=== PATIENT | female | born 1985 | race Caucasian/White ===

== ENCOUNTER 2017-11-23 19:57 | Emergency (ER) | payer MEDICARE ==
[~2017-11-23] VITALS: Ht 172.7 cm; Wt 65.8 kg
--- NOTE | 2017-11-23 20:21 | NUR ---
PT AMBULATORY TO ER BED 16. PT [facility] REPRESENTATIVE [facility], [facility] REPRESENTATIVE STATES PT STATES SHE WANTS TO KILL HER SELF, PT DENIES SI OR HI AT THIS TIME. SUICIDE/SAFETY PRECAUTIONS IN PLACE. 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 VSS/RESP EVEN UNLABORED/NAD NOTED/AFEBRILE/DENIES N-V-D/SKIN WARM AND DRY/AOX4. AWAITING MD PELAYO.
--- NOTE | 2017-11-23 20:25 | NUR ---
URINE SPECIMEN OBTAINED OBTAINED AND SENT TO THE LAB.
[2017-11-23 20:38] LABS: BASOPHILS % (AUTO) 0.5 % (0.0-2.0); EOSINOPHILS % (AUTO) 1.5 % (0.0-6.0); HEMATOCRIT 37 % (33-45); HEMOGLOBIN 12.8 g/dL (11.5-14.8); LYMPHOCYTES # (AUTO) 2.1 /CMM (0.8-4.8); LYMPHOCYTES % (AUTO) 42.4 % (20.0-44.0); MEAN CORPUSCULAR HGB CONC 35 g/dl (31.0-36.0); MEAN CORPUSCULAR VOLUME 90 fL (82-100); MONOCYTES # (AUTO) 0.4 /CMM (0.1-1.30); NEUTROPHILS # (AUTO) 2.3 /CMM (1.8-8.9); NEUTROPHILS % (AUTO) 47.6 % (43.0-81.0); PLATELET COUNT (AUTO) 225 /CMM (150-450); RED BLOOD CELL COUNT(AUTO) 4.08 MIL/uL (4.0-5.2); WHITE BLOOD COUNT (AUTO) 4.9 K/uL (4.3-11.0)
[2017-11-23 20:40] LABS: APPEARANCE,URINE Clear (CLEAR); BILIRUBIN,URINE Negative (NEGATIVE); BLOOD, URINE Trace-intact Ery/uL (NEGATIVE); COLOR,URINE Yellow (YELLOW); KETONES,URINE Negative (NEGATIVE); LEUKOCYTE ESTERASE ,URINE Negative (NEGATIVE); NITRITE, URINE Negative (NEGATIVE); PROTEIN,URINE Negative (NEGATIVE); UGLUCOSE Negative (NEGATIVE); UROBILINOGEN,URINE 0.2 EU/dL (0.2)
[2017-11-23 20:51] LABS: CARBON DIOXIDE 24 mmol/L (21-32); CHLORIDE 107 mmol/L (98-107); CREATININE 0.7 mg/dL (0.6-1.3); GLUCOSE 85 mg/dL (74-106); POTASSIUM 3.8 mmol/L (3.5-5.1); SODIUM SERUM 140 mmol/L (136-145); UREA NITROGEN, BLOOD 7 mg/dL (7-18)
[2017-11-23 20:56] LABS: ALANINE AMINOTRANSFERASE 22 U/L (12-78); ALBUMIN 4.3 g/dL (3.4-5.0); ALCOHOL, BLOOD 208 mg/dL (0-0); ALKALINE PHOSPHATASE 73 U/L (46-116); ASPARTATE AMINOTRANSFERASE 18 U/L (15-37); BILIRUBIN,DIRECT 0.1 mg/dL (0.0-0.2); BILIRUBIN,TOTAL 0.3 mg/dL (0.2-1.0); TOTAL PROTEIN, SERUM 8.5 g/dL (6.4-8.2)
[2017-11-23 20:57] LABS: ACETAMINOPHEN < 2 ug/ml (10-30); SALICYLATE 1.8 mg/dL (2.8-20.0)
--- NOTE | 2017-11-23 21:01 | NUR ---
BLANKET WASHER AT BEDSIDE SPEAKING WITH PATIENT.
[2017-11-23 21:07] LABS: BACTERIA,URINE Rare /HPF (None Seen); SQUAMOUS EPITHELIAL CELL,UR Few /HPF (None Seen); WBC,URINE NONE SEEN /HPF (0-3)
--- NOTE | 2017-11-23 21:12 | NUR ---
CALLED CYNDI AND NOTIFIED HER OF THE PSYCH EVAL NEEDED FOR THIS PT. CYNDI STATES THAT THE BLOOD ALCOHOL LEVEL IS TOO HIGH FOR EVALUATION.
--- NOTE | 2017-11-23 22:12 | NUR ---
JERILYN ([employer] SUPERVISOR OF [facility] FOR PT) [phone]
--- NOTE | 2017-11-24 00:35 | NUR ---
PT RESTING QUIETLY, AROUSES TO VOICE. VSS, RN TO CONTINUE PROVIDING SAFETY/COMFORT MEASURES FOR PATIENT.
--- NOTE | 2017-11-24 00:46 | NUR ---
ART AT BEDSIDE FOR EVAL.
--- NOTE | 2017-11-24 04:09 | NUR ---
Patient discharged to home in stable condition. Written and verbal after care instructions given. Patient verbalizes understanding of instruction. Patient is awake and alert to self, day, and place. Patient ambulatory with a steady gait.
[2017-11-24 04:10] VITALS: BP 121/64
== END 2017-11-24 04:10 | disposition home or self-care (01) ==
LOC: ER 20:03
DX: R45.851 Suicidal ideations (principal); F10.129 Alcohol abuse with intoxication, unspecified; F17.210 Nicotine dependence, cigarettes, uncomplicated; Z88.0 Allergy status to penicillin; Z88.2 Allergy status to sulfonamides
CPT/HCPCS: 36415; 80048; 80076; 80305; 80329; 81001; 84703; 85025; 99284; 99406; A4606; G0480 ×2; 81000-TC; Z7610